=== PATIENT | male | born 1995 | race African-American/Black ===

== ENCOUNTER 2024-08-23 22:40 | Emergency (ER) | payer MEDICAID, SELFPAY ==
[2024-08-23 22:41] VITALS: BP 136/85; PULSE 77; RESP 18; TEMP 37.1; O2SAT 99; BMI 30.7
--- NOTE | 2024-08-24 00:05 | EX.ED.DYSGE1 ---
HPI History of Present Illness Chief Complaint: Sore Throat [facility] Medical History no medical history Home Medications ?Medication ?Instructions ?Recorded ?Last Taken ?Type amoxicillin 875 mg-potassium 1 tab PO BID #14 tabs 08/24/24 Unknown Rx clavulanate 125 mg tablet Allergy/AdvReac Type Severity Reaction Status Date / Time No Known Allergies Allergy Verified 08/23/24 22:41 Family History no significant family his Surgical History no surgical history Social History Smoking Status: Current every day smoker tobacco type: e-cigarettes EXAM Physical Exam Const Vital Signs: 08/23/24 22:41 Temperature 98.7 F Temperature Source Oral Pulse Rate 77 Respiratory Rate 18 Blood Pressure 136/85 H Blood Pressure Mean 102 Pulse Ox 99 Oxygen Delivery Method Room Air [facility] [place] Narrative Medical decision making narrative: HISTORY OF PRESENT ILLNESS: Chief complaint: Sore throat 28-year-old male here with sore throat for 2 days. Also notes chills and cough. Denies chest pain. Denies shortness of breath. No fevers. Notes he tried [id number] sore throat drops but not Tylenol or ibuprofen. REVIEW OF SYSTEMS: Pertinent positives: Sore throat, cough Pertinent negatives: As per HPI PHYSICAL EXAM: Nursing triage notes reviewed, Vital signs reviewed Constitutional: please see [facility] HENT: MMM Eyes: Pupils equal round and reactive to light, Extraocular muscles intact Neck: No stridor, no JVD, full neck ROM, anterior cervical lymphadenopathy, supple soft nontender to palpation. Lungs: Clear to auscultation, No wheezing or rales. No increased work of breathing, no conversational dyspnea, no accessory muscle use, no nasal flaring. No respiratory distress noted Heart: Regular rate and rhythm, No murmurs, No rubs and No gallops, 2+ distal pulses (radial, femoral, posterior tibial) in all extremities Abdomen: Soft, there is no tenderness, rigidity, rebound or guarding, no obvious peritoneal signs, no palpable pulsatile abdominal masses, no auscultated abdominal bruit : No CVAT Extremities: No edema Neuro: No new focal neurological deficits, cranial nerves II through XII intact, 5/5 strength in all present extremities. Intact sensation to light touch in all present extremities, 2+ reflexes bilateral patella tendons. Skin: No rash or lesions noted MEDICAL DECISION MAKING: Chief Complaint: please see [facility] External records reviewed: Reviewed prior imaging, microbiological studies Factors affecting care: none Social determinants of health: none History obtained from others: none Consults: none [facility] Narrative: Patient was initially hemodynamically stable, afebrile and nontoxic-appearing. Exam without focus of pulmonary infection. No submandibular edema. No significant neck tenderness to palpation although there was some anterior cervical lymphadenopathy noted. I considered the following differential diagnosis: Acute bacterial pharyngitis, viral URI, RPA, [employer], Seth angina, Lemierre's syndrome, pneumonia The patient was not hypoxic, he is afebrile his lungs were clear low suspicion for pneumonia Exam consistent with bacterial pharyngitis. Will give Augmentin. No sign of RPA, [employer], Lemierre syndrome or Seth angina noted. The patient and/or family, caregivers express understanding. The patient and/or family, caregivers agrees with the plan. Shared decision making: I will have a discussion with the patient and or visitors regarding risk/benefits of further testing or admission. They will be made aware of of the risk/benefits inherent in this decision they will be given the opportunity to voice understanding. Total critical care time today provided was at least 0 minutes. This excludes separately billable procedures. Critical care time (if documented) is secondary to the patient having high probability of clinically significant/life threatening deterioration in the patient's condition which required my urgent intervention. Impression: 1. Acute bacterial pharyngitis 2. Cough Dispo: Discharge home This note was generated with [employer] dictation software. It may contain incorrect words, spelling, and punctuation that were not noted in review of the chart prior to signing. Discharge Plan Triage Chief Complaint: Sore Throat ED Provider: Diego Iniguez Dx/Rx/DC Orders Instructions: When You Have a Sore Throat Prescriptions: New amoxicillin-pot clavulanate 875-125 mg tablet 1 tab PO BID Qty: 14 0RF Primary Care Provider: Care Physician,No Primary Referrals: Parker Franco MD [Med Staff - Active Staff] - Activity Restrictions/Additional Instructions: Thank you for trusting us with your care today! Please take Tylenol (2 pills, 650 mg), ibuprofen (2 pills, 400 mg) every 6 hours as needed for pain and fever control. Please take antibiotics until course complete Please return to the emergency department if your symptoms change or worsen. Please follow with your primary care physician for further outpatient evaluation and management. Print Language: Pashto Disposition Disposition: Home, Self Care
[2024-08-24 00:23] VITALS: BP 125/75; PULSE 68; RESP 18; TEMP 37; O2SAT 99
[2024-08-24] MEDS: Amox/Clavulanate 875 MG Tablet PO (00:28)
== END 2024-08-24 00:39 | disposition home or self-care (01) ==
LOC: ED 08-24 00:18
PROVIDERS: Emergency Provider Emergency Medicine; Visit Provider Emergency Medicine
DX: J02.8 Acute pharyngitis due to other specified organisms (principal); R05.9 Cough, unspecified; F17.290 Nicotine dependence, other tobacco product, uncomplicated
CPT/HCPCS: 99282